=== PATIENT | male | born 1980 | race Caucasian/White ===

== ENCOUNTER 2021-07-14 11:36 | Emergency (ER) | payer OTHER ==
[~2021-07-14] VITALS: Ht 180.3 cm; Wt 110.5 kg
--- NOTE | 2021-07-14 15:11 | REPVR ---
PROCEDURE INFORMATION: Exam: MR Lumbar Spine Without Contrast Exam date and time: 07/14/2021 2:38 PM Age: 41 years old Clinical indication: Low back pain and lumbago with sciatica; Left; Additional info: Left foot drop back pain left radiculopathy TECHNIQUE: Imaging protocol: Multiplanar magnetic resonance images of the lumbar spine without intravenous contrast. COMPARISON: No relevant prior studies available. FINDINGS: Vertebrae: There is loss of normal T2 signal within the discs at L3-L4 L4-L5 and L5-S1 reflecting disc desiccation.. Spinal cord: Normal signal. No cord compression. L1-L2: No significant disc disease. No significant spinal canal stenosis. No neural foraminal stenosis. L2-L3: No significant disc disease. No significant spinal canal stenosis. No neural foraminal stenosis. L3-L4: Small peripheral tear/rim lesion of the annulus posteriorly.. No significant spinal canal stenosis. No neural foraminal stenosis. L4-L5: Circumferential annulus bulge with the annular tear posteriorly. Discrete linear T2 signal . No significant spinal canal stenosis. No neural foraminal stenosis. L5-S1: There is a moderate to large left paracentral disc extrusion with narrowing of the left lateral recess and moderate left foraminal stenosis. Mild superior migration of the extruded fragment.. No significant spinal canal stenosis. No neural foraminal stenosis. Soft tissues: Unremarkable. IMPRESSION: 1. Left posterior paracentral disc extrusion at L5-S1 with narrowing left lateral recess and mild left foraminal stenosis. 2. Linear increased T2 signal could reflect discitis at L4-L5 or be secondary to central extension of peripheral annular tear noted at this level. Electronically signed by: Minda Sanders On 07/14/2021 15:10:47 PM
[2021-07-14 15:57] LABS: BASO % 0.5 % (0.0-1.0); EOS # 0.1 10^3/uL (0.0-0.5); EOS % 1.4 % (0.0-3.0); HEMATOCRIT 40.9 % (42.0-52.0); HEMOGLOBIN 12.6 g/dl (13.5-17.5); LYMPH # 1.6 10^3/uL (1.5-5.0); LYMPH % 24.6 % (24.0-44.0); MEAN CORPUSCULAR HEMOGLOBIN 24.5 pg (27.0-33.0); MEAN CORPUSCULAR HGB CONC 30.8 g/dl (32.0-36.5); MEAN CORPUSCULAR VOLUME 79.4 fl (80.0-96.0); MONO # 0.5 10^3/uL (0.0-0.8); MONO % 7.2 % (2.0-8.0); NEUTROPHILS # 4.2 10^3/uL (1.5-8.5); PLATELET COUNT, AUTOMATED 315 10^3/uL (150-450); RED BLOOD COUNT 5.15 10^6/uL (4.30-6.10); WHITE BLOOD COUNT 6.4 10^3/uL (4.0-10.0)
[2021-07-14 16:15] LABS: ERYTHROCYTE SEDIMENTATION RATE 9 mm/hr (0-15)
[2021-07-14] MEDS ORDERED: KETOROLAC 60MG 2ML VIAL IM ONE (16:55)
[2021-07-14] MEDS ORDERED: IBUP80TA PO (18:27)
--- NOTE | 2021-07-14 18:30 | CR.PDOC ---
General Date of Consultation: Jul 14, 2021 Attending Physician: VIDA BOWER MD Consultation REASON FOR CONSULTATION/CHIEF COMPLAINT: Back pain radiating to left calf and numb great toe . HISTORY OF PRESENT ILLNESS: Sudden onset back pain and leaft leg pain. 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 previous intermitten back pain. radiating to left calf and num toe with dorsiflexion weakness grade 4. took NSAID this AM. Denies any bowel or bladder symptoms. Able to walk and stand. want to go back to work. MRI by ER shows L5S1 Disc extrusion left side . ALLERGIES: NKDA HOME MEDICATIONS: NSAID this AM PAST MEDICAL HISTORY: 1. healthy 2. intermittent back pain PAST SURGICAL HISTORY: 1. none 2. FAMILY HISTORY: Father: Mother: Siblings: Children: Hereditary Diseases: Unexpected deaths due to medical reasons: SOCIAL HISTORY: Marital status and/or living arrangements: Children: Employment: Tobacco use: ETOH: Illicit drug use: IV drug use: Other relevant social factors: REVIEW OF SYSTEMS: CONSTITUTIONAL: . HEENT: . CARDIOVASCULAR: . RESPIRATORY: . GENITOURINARY: . MUSCULOSKELETAL: . GASTROINTESTINAL: . SKIN: . NEUROLOGICAL: . PSYCHIATRIC: . ENDOCRINE: . HEMATOLOGIC/LYMPHATIC: . ALLERGIC/IMMUNOLOGIC: . PHYSICAL EXAMINATION: Patient seen in the emergency room. Sitting comfortably in a chair. Able to mobilize across to the stretcher for examination. Alert and oriented. Complaining of back pain radiating to the posterior calf. VITAL SIGNS: Please see below. GENERAL APPEARANCE: [Patient comfortable]. HEENT: . RESPIRATORY: [No respiratory distress]. CARDIOVASCULAR: [Not complaining of any cardiovascular symptoms]. ABDOMEN: . EXTREMITIES: [Complaining of left leg pain radiating from his back down to his calf]. NEUROLOGICAL: [Sensory intact left lower extremity with intact pulses. Negative straight leg raise, negative bowstring test Grade 5 power plantarflexion, grade 4+ power ankle dorsiflexion, great full power to extension Hip and knee full range of motion with full power.]. PSYCHIATRIC: . LABORATORY DATA: Please see below. ASSESSMENT/PLAN: 1. [Patient discharged back to his PCP. Advised to follow-up with a spine surgeon. Advised to return to emergency if symptoms worsen or develops any weakness or develops any symptoms of cauda equina.]. 2. [Patient would like to proceed with conservative management.]. Vital Signs/I&O Vital Signs Date Time Temp Pulse Resp B/P (MAP) Pulse Ox O2 Delivery O2 Flow Rate FiO2 07/14/21 15:53 98.4 64 16 157/89 (111) 100 Room Air Laboratory Data Labs 24H Laboratory Tests 2 07/14/21 15:49: Immature Granulocyte % (Auto) 0.3, Neutrophils (%) (Auto) 66.0, Lymphocytes (%) (Auto) 24.6, Monocytes (%) (Auto) 7.2, Eosinophils (%) (Auto) 1.4, Basophils (%) (Auto) 0.5, Neutrophils # (Auto) 4.2, Lymphocytes # (Auto) 1.6, Monocytes # (Auto) 0.5, Eosinophils # (Auto) 0.1, Basophils # (Auto) 0.0, Nucleated Red Bloo d Cells % (auto) 0.0, Erythrocyte Sedimentation Rate 9, C-Reactive Protein, Quantitative < 0.30 CBC/BMP Laboratory Tests 07/14/21 15:49 Microbiology Microbiology 07/14/21 Blood Culture, Received Pending 07/14/21 Blood Culture, Received Pending Allergies Coded Allergies: No Known Allergies (Unverified , 07/14/21) Home Medications Scheduled PRN Ibuprofen (Ibuprofen) 800 Mg Tablet, 800 MG PO Q8H PRN for PAIN, #30 Impression L5S1 left sided disc herniation causuing S1 radiculopathy Plan We had an extensive discussion with Mr. Hagen regarding the diagnosis at hand and available therapeutic options. Explain disc herniation. Risk and benefits of surgery and foot drop/permanent numbness. Recommend trial of conservative management. No strenuous activity for 6 weeks and no heavy lifting. Return to ER if pain increases or symptoms of cauda equina. Follow up with GP or my self next week. Billing Statement Total time of minutes was spent preparing for the visit , obtaining HPI , ex amining the patient , reviewing diagnostic tests , discussing management options , coordinating care , and writing this note . VIDA BOWER MD Jul 14, 2021 18:30
[2021-07-14 18:45] VITALS: BP 157/90
== END 2021-07-14 18:53 | disposition home or self-care (01) ==
LOC: M ED 11:36
DX: M51.37 Other intervertebral disc degeneration, lumbosacral region (principal)
CPT/HCPCS: 36415; 72148; 85025; 85652; 86140; 87040; 96372; 99284; J1885